=== PATIENT | female | born 1940 | race Hispanic/Latino ===

== ENCOUNTER → 2020-09-28 | Day surgery (SDC) | payer MEDICARE, OTHER ==
[~2020-09-28] MED LIST: ALENDRONATE SOD70 MG PO; BENICAR20 MG PO; CALCIUM 500 +1 EAC2 PO; LIPITOR10 MG PO; METFORMIN HCL500 MG PO; OR PHACO EYE KIT ONE; PREOP PHACO EYE KIT ONE
[2020-09-28 12:15] VITALS: BP 147/71
== END | disposition home or self-care (01) ==
LOC: OR 09:49
PROVIDERS: ATTEND Ophthalmology
DX: H25.12 Age-related nuclear cataract, left eye (principal); I10 Essential (primary) hypertension; E78.5 Hyperlipidemia, unspecified; E11.9 Type 2 diabetes mellitus without complications; E03.9 Hypothyroidism, unspecified; K21.9 Gastro-esophageal reflux disease without esophagitis; M19.90 Unspecified osteoarthritis, unspecified site; Z79.84 Long term (current) use of oral hypoglycemic drugs
CPT/HCPCS: 36415; 66982; 82948; V2632

== ENCOUNTER 2024-10-24 09:22 | Inpatient (IN) | payer MEDICARE ==
[~2024-10-24] VITALS: Ht 154.9 cm; Wt 74.8 kg
[~2024-10-24 09:22] MED LIST changes: +GLIPIZIDE ER5 MG PO; +MULTI-VITAMIN1 EACH PO; -OR PHACO EYE KIT ONE; -PREOP PHACO EYE KIT ONE
[2024-10-24 09:59] VITALS: TEMP 97.9
[2024-10-24] MEDS: ASPIRIN 81 MG CHEW TAB PO ONE (10:09)
[2024-10-24 10:34] LABS: RED CELL DISTRIBUTION WIDTH 12.8 % (11.7-14.4)
[2024-10-24 10:35] LABS: BASOPHILS % 0.3 % (0.0-1.0); EOSINOPHILS % 1.3 % (0.0-6.0); LYMPHOCYTES % 42.7 % (18.0-39.1); MONOCYTES % 7.0 % (4.4-11.3); NEUTROPHILS % 48.4 % (38.7-80.0)
[2024-10-24 11:13] LABS: INR 0.93
[2024-10-24 11:24] LABS: EST GLOMERULAR FILTRATION RATE 46.0 ML/MIN (>=60)
[2024-10-24] MEDS ORDERED: ONDANSETRON HCL INJ 2MG/ML 2ML 2 MG/ML VIAL IV PRN (11:30)
[2024-10-24] MEDS ORDERED: Morphine 2mg Syringe 2 MG/ML SYR IV PRN (11:30)
[2024-10-24] MEDS ORDERED: NITROGLYCERIN 0.4 MG SUBL SL PRN (11:30)
[2024-10-24] MEDS ORDERED: IOPAMIDOL 370 MG/ML 100 ML INFUS..BTL INJ ONE (11:45)
[2024-10-24 12:18] VITALS: PULSE 51; RESP 16
[2024-10-24] MEDS: SODIUM CHLORIDE 0.9% 1000ML 1,000 ML IV STA (12:26)
[2024-10-24] MEDS ORDERED: PROTONIX20 MG PO (16:56)
[2024-10-24] MEDS ORDERED: GLIMEPIRIDE2 MG PO (16:56)
[2024-10-24] MEDS ORDERED: FERROUS SULFAT325 MG PO (16:56)
[2024-10-24 18:16] VITALS: BP 122/59; PULSE 50; RESP 17; TEMP 98.2; O2SAT 100
[2024-10-24 20:00] VITALS: BP 115/60; PULSE 57; RESP 18; TEMP 97.6; O2SAT 97
[2024-10-25] VITALS: BP 117/57; PULSE 60; RESP 18; TEMP 97.8; O2SAT 100
[2024-10-25] MEDS: ENOXAPARIN INJ 80 MG/0.8 ML SYR SC SCH (00:34)
[2024-10-25 04:00] VITALS: BP 135/64; PULSE 62; RESP 18; TEMP 98.6; O2SAT 100
[2024-10-25 06:41] LABS: BASOPHILS % 0.4 % (0.0-1.0); EOSINOPHILS % 0.9 % (0.0-6.0); LYMPHOCYTES % 36.4 % (18.0-39.1); MONOCYTES % 5.8 % (4.4-11.3); NEUTROPHILS % 56.4 % (38.7-80.0); RED CELL DISTRIBUTION WIDTH 12.5 % (11.7-14.4)
[2024-10-25 07:25] LABS: CHOL/HDL RATIO 2.8 (3.0-3.6); EST GLOMERULAR FILTRATION RATE 59.0 ML/MIN (>=60); LDL CHOLESTEROL 52.0 MG/DL (60-130)
[2024-10-25 08:03] VITALS: BP 138/69; PULSE 58; RESP 16; TEMP 97.6; O2SAT 100
[2024-10-25] MEDS: MULTIVITAMINS/MINERALS TAB PO SCH (09:18)
[2024-10-25] MEDS: PANTOPRAZOLE SOD 40 MG TABEC PO SCH (09:18)
[2024-10-25] MEDS: ASPIRIN 81 MG ENTERIC COATED PO SCH (09:18)
[2024-10-25] MEDS: FERROUS SULFATE 325 MG TAB PO SCH (09:18)
[2024-10-25 10:00] VITALS: BP 138/69; PULSE 58; RESP 16; TEMP 97.6; O2SAT 100
[2024-10-25 12:04] VITALS: BP 109/54; PULSE 62; RESP 17; TEMP 97.6; O2SAT 100
[2024-10-25 15:58] VITALS: BP 122/57; PULSE 58; RESP 17; TEMP 98.5; O2SAT 98
[2024-10-25] MEDS ORDERED: ATORVASTATIN 10 MG TAB PO SCH (21:00)
[2024-10-25] MEDS ORDERED: OLMESARTAN 20 MG TAB PO SCH (21:00)
== END 2024-10-25 19:42 | disposition home or self-care (01) | DRG 556 ==
LOC: ER 09:45 → ERHOLD 11:24 → MED/SURG 15:01
PROVIDERS: ADMIT Internal Medicine; ATTEND Internal Medicine
DX: M79.18 Myalgia, other site (principal); E11.65 Type 2 diabetes mellitus with hyperglycemia; R07.9 Chest pain, unspecified; I35.0 Nonrheumatic aortic (valve) stenosis; R00.1 Bradycardia, unspecified; E78.00 Pure hypercholesterolemia, unspecified; N28.1 Cyst of kidney, acquired; Z79.84 Long term (current) use of oral hypoglycemic drugs
CPT/HCPCS: 36415; 71045; 71260; 80053; 80061; 82550; 82948; 83735; 83880; 84484; 85025; 85379; 85610; 85730; 93005; 99284; G0378; J1650; J2470; J7030; Q9967